=== PATIENT | female | born 1970 | race Two or more races ===

== ENCOUNTER 2016-06-30 20:07 | Emergency (ER) | payer OTHER ==
[~2016-06-30] VITALS: Ht 157.5 cm; Wt 84.8 kg
[~2016-06-30 20:07] MED LIST: CARAFATE1 G1 ORAL; COLACE100 MG ORAL; HYDROCODON-ACE1 EA15 ORAL; IBUPROFEN600 MG PO; NKM; NORCO 5-325 TA1 EACH ORAL; OMEPRAZOLE-BIC1 EAC1 PO; PRILOSEC OTC20 MG ORAL; SOMA350 MG ORAL; VICODIN 5-5001 EACH PO; ZOFRAN ODT4 MG ORAL
[2016-06-30 20:37] VITALS: BP 107/69
[2016-06-30] MEDS ORDERED: Ketorolac 30mg Inj IM ONE (21:00)
[2016-06-30] MEDS ORDERED: Norco 5mg/325mg tab PO ONE (21:00)
[2016-06-30] MEDS ORDERED: IBUPROFEN600 MG ORAL (22:16)
[2016-06-30] MEDS ORDERED: NORCO 5-325 TA1 EACH ORAL (22:16)
[2016-06-30 22:23] VITALS: BP_SYST 107; BP_SYST 110; BP_DIAS 69
--- NOTE | 2016-07-01 09:15 | Diagnostic Imaging Report ---
Indications: Low back pain. Technique: 3 views of the lumbar spine Findings: Comparison: 07/08/2010 Vertebral alignment remains intact. No fracture, lytic destruction, or other acute changes are demonstrated. Small osteophytes again noted at the margins of multiple disc spaces. Asymmetric narrowing of the L4-5 disc space again noted. IMPRESSION: No evidence of acute abnormality, unchanged Degenerative spondylosis, apparently most severe at L4-5, unchanged
--- NOTE | 2016-07-01 18:19 | Emergency Room Report ---
History of Present Illness General Chief Complaint: Back Pain-No Injury Source: Patient Present Illness HPI 45-year-old female presents ED complaining of back pain times one week. Denies trauma. Notes pain in the lower back, 8 out of 10, sharp, radiating down both legs. Denies any bowel or bladder incontinence. Denies any leg or motor weakness. No other aggravating relieving factors. Denies any other associated symptoms Allergies: Coded Allergies: No Known Allergies (Unverified , 05/31/12) Patient History Past Medical History: none Past Surgical History: none Pertinent Family History: none Social History: Denies: alcohol use, drug use, smoking Last Menstrual Period: May Now: No Immunizations: UTD Reviewed Nursing Documentation: PMH: Agreed, PSxH: Agreed Nursing Documentation-PMH Past Medical History: No Stated History Hx Hypertension: No Hx Diabetes: No Hx Gastrointestinal Problems: No Review of Systems All Other Systems: negative except mentioned in HPI Physical Exam Vital Signs Date Time Temp Pulse Resp B/P Pulse Ox O2 Delivery O2 Flow Rate FiO2 06/30/16 20:23 97.9 75 18 107/69 97 Room Air Sp02 EP Interpretation: reviewed, normal General Appearance: no apparent distress, alert, GCS 15, non-toxic Head: normocephalic Eyes: bilateral eye PERRL, bilateral eye normal inspection ENT: normal ENT inspection Neck: normal inspection Respiratory: normal inspection, speaking full sentences Cardiovascular #1: normal inspection Gastrointestinal: normal inspection Rectal: deferred Genitourinary: no CVA tenderness, no vertebral tenderness Musculoskeletal: other - paraspinal lumbar tenderness Neurologic: alert, oriented x3, responsive, motor strength/tone normal, sensory intact, speech normal Psychiatric: normal inspection Skin: normal inspection Lymphatic: normal inspection Medical Decision Making Diagnostic Impression: Primary Impression: Back pain Qualified Codes: M54.42 - Lumbago with sciatica, left side; M54.41 - Lumbago with sciatica, right side ER Course Hospital Course 45-year-old male presents ED complaining of lower back pain. No evidence of trauma Differential diagnoses include: pyelonephritis, kidney stone, muscle strain, Lspine fracture Clinical course Patient placed on stretcher. After initial history and physical I ordered toradol and [place] for pain. Upon reassessment patient states pain has improved. Patient is requesting x-rays of her back. I explained to the patient that given lack of trauma there is limited utility of x-ray, however patient insisted X-ray show no acute fractures or dislocation, some degenerative changes noted Diagnosis - back pain Stable and discharged to home with prescription for Motrin, [place] . Followup with PMD. Return to ED if symptoms recur or worsen Other X-Ray Diagnostic Results Other X-Ray Diagnostic Results : X-Ray Ordered: Amaya EP Interpretation: No Findings: no fractures, no dislocation, no soft tissue swelling, other - degenerative changes at L4-L5 Number of Views: 3 Last Vital Signs Date Time Temp Pulse Resp B/P Pulse Ox O2 Delivery O2 Flow Rate FiO2 06/30/16 22:23 97.9 71 18 110/69 97 Room Air Status: improved Disposition: HOME, SELF-CARE Condition: Stable Scripts Hydrocodone Bit/Acetaminophen 5-325* (NORCO 5-325*) 1 Each Tablet 1 TAB ORAL Q6H Y for For Pain, #10 TAB 0 Refills Prov: ANGELINA GREGG M.D. 06/30/16 Ibuprofen* (MOTRIN*) 600 Mg Tablet 600 MG ORAL Q8H Y for For Pain, #30 TAB 0 Refills Prov: ANGELINA GREGG M.D. 06/30/16 Patient Instructions: Sciatica ANGELINA GREGG M.D. July 01, 2016 18:19
== END 2016-06-30 22:23 | disposition home or self-care (01) ==
LOC: EMR 20:50
DX: M54.42 Lumbago with sciatica, left side (principal); M54.41 Lumbago with sciatica, right side; M51.36 Other intervertebral disc degeneration, lumbar region
CPT/HCPCS: 72020; 96372; 99284; J1885

== ENCOUNTER 2017-01-04 19:25 | Emergency (ER) | payer OTHER ==
[~2017-01-04] VITALS: Ht 154.9 cm; Wt 78.5 kg
[~2017-01-04 19:25] MED LIST changes: +IBUPROFEN600 MG ORAL
[2017-01-04] MEDS ORDERED: NKM (19:38)
--- NOTE | 2017-01-04 20:11 | Emergency Room Report ---
History of Present Illness General Chief Complaint: Abdominal Pain Source: Patient Present Illness HPI 46 YO Female presents to the ED c/o N/V/D x since last night. the patient Reports 10 out of 10 in severity cramping and increased flatulence. Denies recent abx use or recent travel, denies fevers or chills. Denies blood in the stool or vomit. denies dark tarry stools. denies dysuria, hematuria, polydipsia or frequency, Denies CP, Palpitations, LOC, AMS, dizziness, Changes in Vision, Sensation, paresthesias, or a sudden severe headache. Allergies: Coded Allergies: No Known Allergies (Unverified , 05/31/12) Patient History Past Medical History: see triage record Past Surgical History: none Pertinent Family History: none Last Menstrual Period: nov 2016 Now: No Reviewed Nursing Documentation: PMH: Agreed, PSxH: Agreed Nursing Documentation-PMH Past Medical History: No Stated History Hx Hypertension: No Hx Diabetes: No Hx Gastrointestinal Problems: No Review of Systems All Other Systems: negative except mentioned in HPI Physical Exam Vital Signs Date Time Temp Pulse Resp B/P (MAP) Pulse Ox O2 Delivery O2 Flow Rate FiO2 01/04/17 19:34 98.1 87 16 120/81 97 Room Air Sp02 EP Interpretation: reviewed, normal General Appearance: no apparent distress, alert, GCS 15, non-toxic Head: normocephalic, atraumatic Eyes: bilateral eye normal inspection, bilateral eye PERRL ENT: hearing grossly normal, normal voice Neck: full range of motion, supple/symm/no masses Respiratory: lungs clear, normal breath sounds, speaking full sentences Cardiovascular #1: regular rate, rhythm Gastrointestinal: normal bowel sounds - hyperactive bs in all 4 quadrants, soft , non-distended, no guarding, no pulsatile mass, no rebound, tenderness - generalized TTP to deep palpation primarily in the LLQ Rectal: deferred Genitourinary: normal inspection, no CVA tenderness Musculoskeletal: back normal, gait/station normal, normal range of motion Neurologic: alert, oriented x3, responsive, motor strength/tone normal, sensory intact, speech normal Skin: normal color, no rash, warm/dry, well hydrated Medical Decision Making PA Attestation Dr. joy is my supervising Physician whom patient management has been discussed with. Diagnostic Impression: Primary Impression: Abdominal pain Qualified Codes: R10.84 - Generalized abdominal pain Additional Impression: Diarrhea Qualified Codes: R19.7 - Diarrhea, unspecified ER Course 46 YO Female presents to the ED c/o N/V/D x since last night. the patient Reports 10 out of 10 in severity cramping and increased flatulence. Denies recent abx use or recent travel, denies fevers or chills. Denies blood in the stool or vomit. denies dark tarry stools. denies dysuria, hematuria, polydipsia or frequency, Denies CP, Palpitations, LOC, AMS, dizziness, Changes in Vision, Sensation, paresthesias, or a sudden severe headache. Ddx considered but are not limited to GE, colitis, acute appendicitis, SBO, diverticulitis, acute abdomen just to name a few. Vital signs: pt. is afebrile, H&PE are most consistent with gastroenteritis, no PE signs to suspect acute abdomen at this time. ORDERS: - UA : unremarkable -Urine hcg : negative ED INTERVENTIONS: - Gi Cocktail -Zofran 4mg -Zantac PO - Toradol IV - Re-assessment pt is noted to be sleeping comfortably. -D/w pt. conservative treatment, and to follow up with a primary care provider. pt given a list of primary care clinics for follow up. D/w pt. to return promptly to the ED with worsening or new symptoms. -D/w pt. to stay hydrated, and bland diet. DISCHARGE: At this time pt. is stable for d/c to home. Will provide printed patient care instructions, and any necessary prescriptions. Care plan and follow up instructions have been discussed with the patient prior to discharge. Labs Test 01/04/17 20:37 01/04/17 21:27 Urine HCG, Qualitative Negative Urine Color Pale yellow Urine Appearance Clear Urine pH 6 (4.5-8.0) Urine Specific [place] 1.005 (1.005-1.035) Urine Protein Negative (NEGATIVE) Urine Glucose (UA) Negative (NEGATIVE) Urine Ketones Negative (NEGATIVE) Urine Occult Blood 2+ (NEGATIVE) Urine Nitrite Negative (NEGATIVE) Urine Bilirubin Negative (NEGATIVE) Urine Urobilinogen Normal MG/DL (0.0-1.0) Urine Leukocyte Esterase Negative (NEGATIVE) Urine RBC 2-4 /HPF (0 - 2) Urine WBC 0-2 /HPF (0 - 2) Urine Squamous Epithelial Cells Few /LPF (NONE/OCC) Urine Bacteria Few /HPF (NONE) Labs Test 01/04/17 20:37 Urine HCG, Qualitative Negative Last Vital Signs Date Time Temp Pulse Resp B/P (MAP) Pulse Ox O2 Delivery O2 Flow Rate FiO2 01/04/17 19:34 98.1 87 16 120/81 97 Room Air Disposition: HOME, SELF-CARE Condition: Stable Scripts Ranitidine Hcl* (ZANTAC*) 150 Mg Tablet 150 MG ORAL TWICE A DAY for 7 Days, #14 TAB Prov: Maura Fox 01/04/17 Ondansetron Odt* (ZOFRAN ODT*) 4 Mg Tab.rapdis 4 MG ORAL Q6H Y for Nausea & Vomiting, #20 TAB Prov: Maura Fox 01/04/17 Dicyclomine Hcl* (BENTYL*) 10 Mg Capsule 10 MG ORAL FOUR TIMES A DAY for 12 Days, CAP Prov: Maura Fox 01/04/17 Patient Instructions: Diarrhea, Adult, [id number], Viral Gastroenteritis, Adult Additional Instructions: Take medications as directed. Follow up with a Primary Care Provider in 3-5 days, even if your symptoms have resolved. --Please review list of primary care clinics, if you do not already have a primary care provider Return sooner to ED if new symptoms occur, or current symptoms become worse. - Please note that this Emergency Department Report was dictated using [employer] mobile technology software, occasionally this can lead to erroneous entry secondary to interpretation by the dictation equipment. Maura Fox Jan 04, 2017 20:10
[2017-01-04] MEDS ORDERED: Mylanta II UD 30ml ORAL ONE (20:15)
[2017-01-04] MEDS ORDERED: Lidocaine 2% Visc 15ml soln ORAL ONE (20:15)
[2017-01-04] MEDS ORDERED: Dicyclomine HCl 10mg/5ml oral soln ORAL ONE (20:15)
[2017-01-04] MEDS ORDERED: Ketorolac 60mg Inj IM ONE (20:45)
[2017-01-04] MEDS ORDERED: Ketorolac 30mg Inj IV ONE (21:00)
[2017-01-04] MEDS ORDERED: ZANTAC150 MG ORAL (21:32)
[2017-01-04] MEDS ORDERED: BENTYL10 MG ORAL (21:32)
[2017-01-04] MEDS ORDERED: ZOFRAN ODT4 MG ORAL (21:32)
[2017-01-04 22:10] VITALS: BP 136/76
[2017-01-04 23:21] LABS: APPEARANCE,URINE CLEAR; KETONES,URINE NEGATIVE (NEGATIVE); LEUKOCYTE ESTERASE ,URINE NEGATIVE (NEGATIVE); NITRITE,URINE NEGATIVE (NEGATIVE); PH,URINE 6 (4.5-8.0); PROTEIN,URINE NEGATIVE (NEGATIVE); UROBILINOGEN,URINE NORMAL MG/DL (0.0-1.0)
[2017-01-04 23:28] LABS: BACTERIA,URINE FEW /HPF; SQUAMOUS EPITHELIAL CELL,UR FEW /LPF (NONE/OCC); WBC,URINE 0-2 /HPF (0 - 2)
== END 2017-01-04 22:10 | disposition home or self-care (01) ==
LOC: EMR 20:52
DX: R10.9 Unspecified abdominal pain (principal); R19.7 Diarrhea, unspecified
CPT/HCPCS: 81003; 81025; 96372; 96374; 99284; J1885

== ENCOUNTER 2017-06-20 12:49 | Emergency (ER) | payer OTHER ==
[~2017-06-20] VITALS: Ht 162.6 cm; Wt 78.5 kg
[~2017-06-20 12:49] MED LIST changes: +BENTYL10 MG ORAL; +ZANTAC150 MG ORAL
[2017-06-20 13:55] VITALS: BP 104/60
[2017-06-20] MEDS ORDERED: Metoclopramide 10mg/2ml Inj IVP ONE (14:15)
[2017-06-20 14:39] LABS: BASOPHILS % (AUTO) 0.8 % (0.0-2.0); EOSINOPHILS % (AUTO) 0.6 % (0.0-3.0); HEMATOCRIT 43.9 % (37.0-47.0); HEMOGLOBIN 14.9 G/DL (12.0-16.0); LYMPHOCYTES % (AUTO) 17.4 % (20.0-45.0); MEAN CORPUSCULAR VOLUME 85 FL (80-99); MONOCYTES % (AUTO) 4.8 % (1.0-10.0); NEUTROPHILS % (AUTO) 76.4 % (45.0-75.0); PLATELET COUNT 304 K/UL (150-450); RED BLOOD COUNT 5.16 M/UL (4.20-5.40); RED CELL DISTRIBUTION WIDTH 12.1 % (11.6-14.8); WHITE BLOOD COUNT 8.8 K/UL (4.8-10.8)
[2017-06-20 14:43] LABS: APPEARANCE,URINE CLOUDY; BILIRUBIN, URINE NEGATIVE (NEGATIVE); GLUCOSE, URINE (UA) NEGATIVE (NEGATIVE); KETONES,URINE 2+ (NEGATIVE); LEUKOCYTE ESTERASE ,URINE 2+ (NEGATIVE); NITRITE,URINE NEGATIVE (NEGATIVE); PH,URINE 9 (4.5-8.0); PROTEIN,URINE 1+ (NEGATIVE); UROBILINOGEN,URINE NORMAL MG/DL (0.0-1.0)
[2017-06-20] MEDS ORDERED: Morphine Sulfate 4mg/ml Inj IVP ONE (14:45)
[2017-06-20 14:46] LABS: ANION GAP 9 mmol/L (5-15); BLOOD UREA NITROGEN 14 mg/dL (7-18); CALCIUM 9.4 MG/DL (8.5-10.1); CARBON DIOXIDE 27 MMOL/L (21-32); CHLORIDE 104 MMOL/L (98-107); CREATININE 0.7 MG/DL (0.55-1.30); POTASSIUM 3.8 MMOL/L (3.5-5.1); SODIUM 140 MMOL/L (136-145)
[2017-06-20 14:47] LABS: COLOR,URINE YELLOW
--- NOTE | 2017-06-20 14:53 | Diagnostic Imaging Report ---
Indication: Headache Technique: Contiguous 5 mm thick transaxial imaging of the head obtained in a Siemens Sensation [address] scanner. Soft tissue and bone windows generated. Automatic Exposure Control was utilized. Total Dose length Product (DLP): 1379.[address] Dose Index Volume (CTDIvol): 70.38 mGy Comparison: none Findings: The size and configuration of the cortical sulci, basal cisterns, and ventricles are within normal limits for age. There is no mass effect, midline shift, or edema identified. There is no evidence of acute hemorrhage or abnormal intra-axial or extra-axial fluid collections. The bones and soft tissues are unremarkable. Impression: No mass effect, edema or acute bleed. The CT scanner at [facility] is accredited by the [employer] and the scans are performed using dose optimization techniques as appropriate to a performed exam including Automatic Exposure control.
[2017-06-20 14:59] LABS: ALANINE AMINOTRANSFERASE 40 U/L (12-78); ALBUMIN 3.8 G/DL (3.4-5.0); ALBUMIN/GLOBULIN RATIO 0.9 (1.0-2.7); ALKALINE PHOSPHATASE 73 U/L (46-116); ASPARTATE AMINO TRANSFERASE 24 U/L (15-37); BILIRUBIN,TOTAL 1.1 MG/DL (0.2-1.0)
[2017-06-20 15:02] LABS: BILIRUBIN,DIRECT 0.2 MG/DL (0.0-0.3)
[2017-06-20] MEDS ORDERED: cefTRIAXone 1 GM in NS 55 ML IV ONE (15:15)
[2017-06-20] MEDS ORDERED: CEPHALEXIN500 MG ORAL (15:29)
--- NOTE | 2017-06-20 15:30 | Emergency Room Report ---
History of Present Illness General Chief Complaint: Abdominal Pain Source: Patient Present Illness HPI 46 y/o female presents to the ER for abdominal pain and headache since this morning. Patient states that she has a generalized headache associated with nausea and generalized abdominal pain. Patient states that he is not taking medications for symptoms and has no other physical complaints. Patient denies any significant medical history and denies taking medication for her symptoms. Patient denies any modifying factors and states that food does not make her symptoms worse. Patient denies any fever, chills, chest pain, shortness of breath, neck stiffness, rashes, body aches, chills, vision changes, muscle weakness, blurred vision, neck pain. Allergies: Coded Allergies: No Known Allergies (Unverified , 05/31/12) Patient History Limited by: language barrier Past Medical History: see triage record Past Surgical History: none Pertinent Family History: none Last Menstrual Period: 4-26 Now: No Reviewed Nursing Documentation: PMH: Agreed; PSxH: Agreed Nursing Documentation-PMH Past Medical History: No History, Except For Hx Hypertension: No Hx Diabetes: No Hx Gastrointestinal Problems: Yes - gastritis Review of Systems All Other Systems: negative except mentioned in HPI Physical Exam Vital Signs Date Time Temp Pulse Resp B/P (MAP) Pulse Ox O2 Delivery O2 Flow Rate FiO2 18 13:19 98.1 67 18 120/79 98 Room Air 98.1 Sp02 EP Interpretation: reviewed, normal General Appearance: no apparent distress, alert, GCS 15, non-toxic Head: normocephalic, atraumatic Eyes: bilateral eye normal inspection, bilateral eye PERRL ENT: hearing grossly normal, normal pharynx, no angioedema, normal voice Neck: full range of motion, supple/symm/no masses Respiratory: chest non-tender, lungs clear, normal breath sounds, speaking full sentences Cardiovascular #1: regular rate, rhythm, no edema Gastrointestinal: normal bowel sounds, non tender, soft, non-distended, no guarding, no rebound Genitourinary: no CVA tenderness Musculoskeletal: back normal, gait/station normal, normal range of motion, non- tender, calf tenderness Neurologic: alert, oriented x3, responsive, motor strength/tone normal, sensory intact, speech normal Psychiatric: judgement/insight normal, memory normal, mood/affect normal, no suicidal/homicidal ideation Skin: normal color, no rash, warm/dry, well hydrated Medical Decision Making PA Attestation Dr. Bonilla my supervising physician with whom patient management has been discussed with. Diagnostic Impression: Primary Impression: UTI (urinary tract infection) ER Course Pt. presents to the ED c/o abd pain and headache Ddx considered but are not limited to CVA, migraine, meningitis, ICH, gastritis , UTI, Pyelonephritis Vital signs: are WNL, pt. is afebrile H&PE are most consistent with UTI ORDERS / ED INTERVENTIONS: My Orders - MAGEN RUIAS Procedure Category Date Status Time Iv Access / Saline CARE 06/20/17 Transmitted Lock 14:05 Cbc W/ Differential LAB 06/20/17 Complete 14:05 CMP LAB 06/20/17 Complete 14:05 Urine Screen LAB 06/20/17 Complete 14:05 Urinalysis Reflex LAB 06/20/17 Complete Microscopy 14:05 Ct Head No Contrast CT 06/20/17 Resulted 14:05 Ns 1000ml (Sodium PHA 06/20/17 Complete Chloride 1000ml Bag) 14:05 Saline 10ml Flush PHA 06/20/17 In Process (Saline 10ml Flush) 14:15 Metoclopramide PHA 06/20/17 Complete (Reglan) 14:15 Morphine Sulfate PHA 06/20/17 Complete (Morphine Sulfate) 14:45 Bilirubin Direct LAB 06/20/17 Complete 14:21 Culture Urine JUAN 06/20/17 In Process 13:25 Ceftriaxone (Rocephin) PHA 06/20/17 Complete 15:15 DISCHARGE: At this time pt. is stable for d/c to home. Will provide printed patient care instructions, and any necessary prescriptions. Care plan and follow up instructions have been discussed with the patient prior to discharge. Laboratory Tests Test 06/20/17 13:25 06/20/17 14:21 Urine Color Yellow Urine Appearance Cloudy Urine pH 9 (4.5-8.0) Urine Specific [place] 1.015 (1.005-1.035) Urine Protein 1+ (NEGATIVE) H Urine Glucose (UA) Negative (NEGATIVE) Urine Ketones 2+ (NEGATIVE) H Urine Occult Blood Negative (NEGATIVE) Urine Nitrite Negative (NEGATIVE) Urine Bilirubin Negative (NEGATIVE) Urine Urobilinogen Normal MG/DL (0.0-1.0) Urine Leukocyte Esterase 2+ (NEGATIVE) H Urine RBC 0-2 /HPF (0 - 2) Urine WBC 5-10 /HPF (0 - 2) H Urine Squamous Epithelial Cells Occasional /LPF Urine Amorphous Sediment Many /LPF (NONE) H Urine Bacteria Moderate /HPF (NONE) H Urine HCG, Qualitative Negative (NEGATIVE) White Blood Count 8.8 K/UL (4.8-10.8) Red Blood Count 5.16 M/UL (4.20-5.40) Hemoglobin 14.9 G/DL (12.0-16.0) Hematocrit 43.9 % (37.0-47.0) Mean Corpuscular Volume 85 FL (80-99) Mean Corpuscular Hemoglobin 28.8 PG (27.0-31.0) Mean Corpuscular Hemoglobin Concent 33.9 G/DL (32.0-36.0) Red Cell Distribution Width 12.1 % (11.6-14.8) Platelet Count 304 K/UL (150-450) Mean Platelet Volume 6.9 FL (6.5-10.1) Neutrophils (%) (Auto) 76.4 % (45.0-75.0) H Lymphocytes (%) (Auto) 17.4 % (20.0-45.0) L Monocytes (%) (Auto) 4.8 % (1.0-10.0) Eosinophils (%) (Auto) 0.6 % (0.0-3.0) Basophils (%) (Auto) 0.8 % (0.0-2.0) Sodium Level 140 MMOL/L (136-145) Potassium Level 3.8 MMOL/L (3.5-5.1) Chloride Level 104 MMOL/L (98-107) Carbon Dioxide Level 27 MMOL/L (21-32) Anion Gap 9 mmol/L (5-15) Blood Urea Nitrogen 14 mg/dL (7-18) Creatinine 0.7 MG/DL (0.55-1.30) Estimate Glomerular Filtration Rate > 60 mL/min (>60) Glucose Level 114 MG/DL (74-106) H Calcium Level 9.4 MG/DL (8.5-10.1) Total Bilirubin 1.1 MG/DL (0.2-1.0) H Direct Bilirubin 0.2 MG/DL (0.0-0.3) Aspartate Amino Transferase (AST) 24 U/L (15-37) Alanine Aminotransferase (ALT) 40 U/L (12-78) Alkaline Phosphatase 73 U/L (46-116) Total Protein 8.0 G/DL (6.4-8.2) Albumin 3.8 G/DL (3.4-5.0) Globulin 4.2 g/dL Albumin/Globulin Ratio 0.9 (1.0-2.7) L Last Vital Signs Date Time Temp Pulse Resp B/P (MAP) Pulse Ox O2 Delivery O2 Flow Rate FiO2 06/20/17 15:49 98.0 06/20/17 13:55 68 12 104/60 95 Room Air Disposition: HOME, SELF-CARE Condition: Stable Scripts Cephalexin* (KEFLEX*) 500 Mg Capsule 500 MG ORAL EVERY 12 HOURS, #14 CAP 0 Refills Prov: MAGEN URIAS 06/20/17 Referrals: NON PHYSICIAN (PCP) Patient Instructions: Urinary Tract Infection Additional Instructions: Take medication as directed. Return to clinic or PCP sooner if symptoms worsen or do not improve. Go to ER if you experience any adverse reactions to medication or if you start developing back pain or fever. patient's return for recheck of her abdominal pain if she experiences any worsening or persisting abdominal pain within the next 8-10 hours should her symptoms persist or worsen. MAGEN URIAS June 20, 2017 15:30
[2017-06-20 16:10] VITALS: BP 108/72
== END 2017-06-20 16:13 | disposition home or self-care (01) ==
LOC: EMR 13:51
DX: N39.0 Urinary tract infection, site not specified (principal); Z87.19 Personal history of other diseases of the digestive system
CPT/HCPCS: 36415; 70450; 80053; 81003; 81025; 82248; 85025; 87086; 96374; 96375; 99284; J0696; J2270; J2765

== ENCOUNTER 2018-05-22 17:13 | Emergency (ER) | payer OTHER ==
[~2018-05-22] VITALS: Ht 165.1 cm; Wt 81.6 kg
[~2018-05-22 17:13] MED LIST changes: +CEPHALEXIN500 MG ORAL
--- NOTE | 2018-05-22 17:43 | Emergency Room Report ---
History of Present Illness General Chief Complaint: Abdominal Pain Source: Patient, Medical Record Present Illness HPI Patient is a 47-year-old female presented after increased epigastric discomfort and diarrhea. Patient had been having multiple episodes of diarrhea since . She reports having sick contacts at home with similar symptoms. Patient had been seen by her primary care physician was told that she had a virus and was given prescription for metronidazole and Flagyl. Patient had not been vomiting. She reports having some prior history of H. pylori. She denies any black or bloody stools. She states that she been taking Pepto-Bismol as well as Imodium without any improvement. Allergies: Coded Allergies: No Known Allergies (Unverified , 05/31/12) Patient History Past Medical History: see triage record Last Menstrual Period: 05/06/18 Reviewed Nursing Documentation: PMH: Agreed; PSxH: Agreed Nursing Documentation-PMH Past Medical History: No History, Except For Hx Hypertension: No Hx Diabetes: No Hx Gastrointestinal Problems: Yes - gastritis Review of Systems All Other Systems: negative except mentioned in HPI Physical Exam Vital Signs Date Time Temp Pulse Resp B/P (MAP) Pulse Ox O2 Delivery O2 Flow Rate FiO2 05/22/18 17:23 98.1 71 18 120/78 96 Room Air Sp02 EP Interpretation: reviewed, normal General Appearance: normal inspection, well appearing, no apparent distress, alert, GCS 15, non-toxic Head: atraumatic ENT: normal ENT inspection, hearing grossly normal, normal voice Neck: normal inspection, full range of motion, supple, no bony tend Respiratory: normal inspection, lungs clear, normal breath sounds, no respiratory distress, no retraction, no wheezing Cardiovascular #1: regular rate, rhythm, no edema Gastrointestinal: normal inspection, normal bowel sounds, non tender, soft, no guarding, no hernia Genitourinary: no CVA tenderness Musculoskeletal: normal inspection, back normal, normal range of motion Neurologic: normal inspection, alert, oriented x3, responsive, verse writer III-XII nml as tested, speech normal Psychiatric: normal inspection, judgement/insight normal, mood/affect normal Skin: normal inspection, normal color, no rash Medical Decision Making Diagnostic Impression: Primary Impression: Abdominal pain Additional Impression: Gastroenteritis ER Course Patient presented for abdominal pain. Differential diagnoses included ischemic bowel, appendicitis, perforated viscus, abdominal aortic aneurysm, inferior myocardial infarction, viral gastroenteritis among others. Patient has a benign exam and does not appear to require any further imaging or laboratory testing at this time. Patient appears to have a viral gastroenteritis.Patient is given medications for symptomatic treatment. She is advised to follow-up with her primary care physician for recheck. The patient is advised to follow up with primary care doctor in 1-2 days. Patient is advised to return if any worsening condition or if any changes in status that are concerning. This report is dictated with [employer] silverlight developer software which may occasionally lead to discrepancies related to use of this software. Labs Test 05/22/18 17:57 Urine HCG, Qualitative Negative (NEGATIVE) Last Vital Signs Date Time Temp Pulse Resp B/P (MAP) Pulse Ox O2 Delivery O2 Flow Rate FiO2 05/22/18 17:23 98.1 71 18 120/78 96 Room Air Status: improved Disposition: HOME, SELF-CARE Condition: Stable Scripts Diphenoxylate Hcl/Atropine (LOMOTIL TABLET) 1 Each Tablet 1 TAB ORAL DAILY, #10 TAB 0 Refills Prov: Jose Zepeda MD 05/22/18 Famotidine (PEPCID AC) 20 Mg Tablet 20 MG PO DAILY, #30 TAB Prov: Jose Zepeda MD 05/22/18 Dicyclomine Hcl* (DICYCLOMINE HCL*) 10 Mg Capsule 10 MG PO QID, #60 CAP Prov: Jose Zepeda MD 05/22/18 Jose Zepeda MD May 22, 2018 17:43
[2018-05-22] MEDS ORDERED: Simethicone 80mg tab ORAL ONE (17:45)
[2018-05-22] MEDS ORDERED: Lidocaine 2% Visc 15ml soln ORAL ONE (17:45)
[2018-05-22] MEDS ORDERED: Dicyclomine HCl 10mg/5ml oral soln ORAL ONE (17:45)
[2018-05-22 18:19] VITALS: BP 116/72
[2018-05-22] MEDS ORDERED: DICYCLOMINE HCL10 MG PO (18:41)
[2018-05-22] MEDS ORDERED: PEPCID AC20 M2 PO (18:41)
[2018-05-22] MEDS ORDERED: LOMOTIL TABLET1 EACH ORAL (18:41)
[2018-05-22 19:03] VITALS: BP 116/72
== END 2018-05-22 19:03 | disposition home or self-care (01) ==
LOC: EMR 17:45
DX: K52.9 Noninfective gastroenteritis and colitis, unspecified (principal); R10.13 Epigastric pain
CPT/HCPCS: 81025; 99283

== ENCOUNTER 2018-06-15 04:59 | Emergency (ER) | payer OTHER ==
[~2018-06-15] VITALS: Ht 172.7 cm; Wt 81.6 kg
[~2018-06-15 04:59] MED LIST changes: +DICYCLOMINE HCL10 MG PO; +LOMOTIL TABLET1 EACH ORAL; +PEPCID AC20 M2 PO
[2018-06-15 05:10] VITALS: BP 127/82
--- NOTE | 2018-06-15 05:10 | NUR ---
ED Nurse Note: Pt has L lower back pain tranfer to front and flank for 3 days.
--- NOTE | 2018-06-15 05:22 | Emergency Room Report ---
History of Present Illness General Chief Complaint: Pain Source: Patient (Lewis Barrett MD) Present Illness HPI Is a 47-year-old female with no past medical issue. She presents with chief complaint of back pain. Onset for 3 days. Ankle is localized the left flank going to the groin. Pain is sharp. 9 out of 10. Worse with movement. No trauma. No fever chills but no incontinence of bowel or urine. Never had this problem before. No urinary complaint. (Lewis Barrett MD) Allergies: Coded Allergies: No Known Allergies (Unverified , 05/31/12) Patient History Past Medical History: see triage record, old chart reviewed Past Surgical History: none Pertinent Family History: none Last Menstrual Period: Jun 06 2018 Now: No Immunizations: other Reviewed Nursing Documentation: PMH: Agreed; PSxH: Agreed (Lewis Barrett MD) Nursing Documentation-PMH Hx Hypertension: No Hx Diabetes: No Hx Gastrointestinal Problems: Yes - gastritis (Lewis Barrett MD) Review of Systems Eye: Denies: eye pain, blurred vision ENT: Denies: ear pain, nose congestion, throat swelling Respiratory: Denies: cough, shortness of breath Cardiovascular: Denies: chest pain, palpitations Gastrointestinal: Denies: abdominal pain, diarrhea, nausea, vomiting Musculoskeletal: Reports: back pain; Denies: joint pain Skin: Denies: rash Neurological: Denies: headache, numbness Endocrine: Denies: increased thirst, increased urine Hematologic/Lymphatic: Denies: easy bruising All Other Systems: negative except mentioned in HPI (Lewis Barrett MD) Physical Exam Vital Signs Date Time Temp Pulse Resp B/P (MAP) Pulse Ox O2 Delivery O2 Flow Rate FiO2 06/15/18 05:04 98.2 89 20 127/82 97 Room Air vitals normal Sp02 EP Interpretation: reviewed, normal General Appearance: well appearing, no apparent distress, alert Head: normocephalic, atraumatic Eyes: bilateral eye PERRL, bilateral eye EOMI ENT: hearing grossly normal, normal pharynx Neck: full range of motion, supple, no meningismus Respiratory: chest non-tender, lungs clear, normal breath sounds Cardiovascular #1: regular rate, rhythm, no murmur Gastrointestinal: normal bowel sounds, non tender, no mass, no organomegaly, no bruit, non-distended Musculoskeletal: back normal, gait/station normal, normal range of motion Psychiatric: mood/affect normal Skin: warm/dry (Lewis Barrett MD) Medical Decision Making Diagnostic Impression: Primary Impression: Back pain Qualified Codes: M54.5 - Low back pain ER Course She presents with back pain. No evidence of sinus syndrome, spinal after abscess or neoplastic process. Labs unremarkable. Urine negative for infection. CT scan pending. (Lewis Barrett MD) ER Course CT scan read by radiology showed multiple lymph nodes without any evidence of kidney stone, appendicitis. Patient had a fat-containing umbilical hernia. There is normal bowel gas pattern. Patient was given a GI cocktail.Patient was advised her to follow-up with primary care physician for recheck and further evaluation of lymphadenopathy. (Jose Zepeda MD) Last Vital Signs Date Time Temp Pulse Resp B/P (MAP) Pulse Ox O2 Delivery O2 Flow Rate FiO2 06/15/18 05:10 98.2 89 20 127/82 97 Room Air Status: improved (Lewis Barrett MD) Status: improved (Jose Zepeda MD) Disposition: HOME, SELF-CARE Condition: Stable Scripts Pantoprazole* (PROTONIX*) 40 Mg Tablet.dr 40 MG ORAL DAILY, #30 TAB Prov: Jose Zepeda MD 06/15/18 Metronidazole* (FLAGYL*) 500 Mg Tablet 500 MG ORAL BID, #14 TAB Prov: Jose Zepeda MD 06/15/18 Dicyclomine Hcl* (DICYCLOMINE HCL*) 10 Mg Capsule 10 MG PO QID, #30 CAP Prov: Jose Zepeda MD 06/15/18 Referrals: [facility]ERR[facility] (PCP) Lewis Barrett MD June 15, 2018 05:22 Jose Zepeda MD June 15, 2018 07:06
[2018-06-15] MEDS ORDERED: Morphine Sulfate 4mg/ml Inj (IV USE ONLY) IVP ONE ×2 (05:30→05:45)
[2018-06-15] MEDS ORDERED: Ketorolac 30mg Inj IV ONE (05:30)
[2018-06-15 05:31] LABS: APPEARANCE,URINE CLEAR; BILIRUBIN, URINE NEGATIVE (NEGATIVE); COLOR,URINE PALE YELLOW; GLUCOSE, URINE (UA) NEGATIVE (NEGATIVE); KETONES,URINE NEGATIVE (NEGATIVE); LEUKOCYTE ESTERASE ,URINE 1+ (NEGATIVE); NITRITE,URINE NEGATIVE (NEGATIVE); PH,URINE 6.5 (4.5-8.0); PROTEIN,URINE NEGATIVE (NEGATIVE); UROBILINOGEN,URINE NORMAL MG/DL (0.0-1.0)
[2018-06-15] MEDS ORDERED: Morphine Sulfate 4mg/ml Inj (IV USE ONLY) ONE (05:33)
--- NOTE | 2018-06-15 05:34 | NUR ---
ED Nurse Note: verbal order of 4mg morphine per ermd
[2018-06-15 05:35] LABS: BASOPHILS % (AUTO) 1.2 % (0.0-2.0); EOSINOPHILS % (AUTO) 2.3 % (0.0-3.0); HEMATOCRIT 43.3 % (37.0-47.0); HEMOGLOBIN 14.6 G/DL (12.0-16.0); LYMPHOCYTES % (AUTO) 27.8 % (20.0-45.0); MEAN CORPUSCULAR VOLUME 84 FL (80-99); MONOCYTES % (AUTO) 7.5 % (1.0-10.0); NEUTROPHILS % (AUTO) 61.2 % (45.0-75.0); PLATELET COUNT 338 K/UL (150-450); RED BLOOD COUNT 5.15 M/UL (4.20-5.40); RED CELL DISTRIBUTION WIDTH 12.8 % (11.6-14.8); WHITE BLOOD COUNT 9.2 K/UL (4.8-10.8)
--- NOTE | 2018-06-15 05:37 | NUR ---
ED Nurse Note: pt left for CT
[2018-06-15 05:43] LABS: ANION GAP 9 mmol/L (5-15); BLOOD UREA NITROGEN 14 mg/dL (7-18); CALCIUM 9.7 MG/DL (8.5-10.1); CARBON DIOXIDE 25 MMOL/L (21-32); CHLORIDE 103 MMOL/L (98-107); CREATININE 0.8 MG/DL (0.55-1.30); POTASSIUM 3.9 MMOL/L (3.5-5.1); SODIUM 137 MMOL/L (136-145)
[2018-06-15 05:47] LABS: ALANINE AMINOTRANSFERASE 37 U/L (12-78); ALBUMIN 3.8 G/DL (3.4-5.0); ALBUMIN/GLOBULIN RATIO 0.8 (1.0-2.7); ALKALINE PHOSPHATASE 81 U/L (46-116); ASPARTATE AMINO TRANSFERASE 25 U/L (15-37); BILIRUBIN,TOTAL 0.7 MG/DL (0.2-1.0)
--- NOTE | 2018-06-15 05:53 | NUR ---
ED Nurse Note: pt returned from CT
[2018-06-15 06:52] VITALS: BP 109/64
[2018-06-15] MEDS ORDERED: Dicyclomine HCl 10mg/5ml oral soln ORAL ONE (07:15)
[2018-06-15] MEDS ORDERED: Lidocaine 2% Visc 15ml soln ORAL ONE (07:15)
--- NOTE | 2018-06-15 07:24 | NUR ---
HAND-OFF: Report given to WARREN Tubbs.
--- NOTE | 2018-06-15 07:28 | NUR ---
ED Nurse Note: Received patient in bed, patient is resting comfortably in bed, asleep, eyes closed, breathing even and unlabored. patient's vital signs stable. Patient's daughter is at bedside.
[2018-06-15 07:36] VITALS: BP 106/69
[2018-06-15] MEDS ORDERED: METRONIDAZOLE500 MG ORAL (08:41)
[2018-06-15] MEDS ORDERED: PROTONIX40 MG ORAL (08:41)
[2018-06-15] MEDS ORDERED: DICYCLOMINE HCL10 MG PO (08:41)
[2018-06-15 08:56] VITALS: BP 112/72
--- NOTE | 2018-06-15 08:58 | Diagnostic Imaging Report ---
Indication: Abdominal pain Technique: Continuous helical transaxial imaging of the abdomen and pelvis was obtained from the lung bases to the pubic symphysis. No intravenous contrast was administered. Coronal 2-D reformats were also obtained. Automatic Exposure Control was utilized. Total Dose length Product (DLP): 901.[address] Dose Index Volume (CTDIvol): 16.38 mGy Comparison: Noncontrast CT abdomen pelvis 12/01/2014 Findings: Lung bases are clear. The appendix is normal. There is a 3 cm hypodensity in the left lobe of the liver nonspecific on this study. Similar appearance on the last exam without change. Gallbladder is unremarkable. No nephrolithiasis or hydronephrosis demonstrated. Small hypodensity in the right kidney measuring 1 cm nonspecific. No free fluid identified. No evidence of bowel obstruction. Bladder is nondistended. Uterus noted. IMPRESSION: No acute findings appreciated. 3 cm hypodensity in the left lobe of the liver nonspecific, incompletely evaluated but without change from prior study. 1 cm hypodensity in the right kidney, nonspecific without change. The CT scanner at [facility] is accredited by the [employer] and the scans are performed using dose optimization techniques as appropriate to a performed exam including Automatic Exposure control.
[2018-06-15 08:59] VITALS: BP 112/72
--- NOTE | 2018-06-15 09:00 | NUR ---
ER DISCHARGE NOTE: Patient is cleared to be discharged per ERMD Dr. FLORES , pt is aox4, on room air, with stable vital signs. pt was given dc and prescription instructions, pt was able to verbalize understanding, pt id band and iv site removed without complications. pt is able to ambulate with steady gait. patient's daughter at bedside. pt took all belongings.
== END 2018-06-15 09:00 | disposition home or self-care (01) ==
LOC: EMR 05:13
DX: M54.5 Low back pain (principal); R10.9 Unspecified abdominal pain
CPT/HCPCS: 36415; 74176; 80053; 81003; 81025; 83690; 85025; 96361; 96374; 96375; 99284; J1885; J2270; J2405; S0028

== ENCOUNTER 2019-01-09 17:20 | Emergency (ER) | payer BC, OTHER ==
[~2019-01-09] VITALS: Ht 160 cm; Wt 78.5 kg
[~2019-01-09 17:20] MED LIST changes: +METRONIDAZOLE500 MG ORAL; +PROTONIX40 MG ORAL
[2019-01-09 17:30] VITALS: BP 122/86
--- NOTE | 2019-01-09 17:30 | NUR ---
ED Nurse Note: Pt walked into ED from home c/o mid abdominal pain starting at 0400 today. Pt states pain /. denies N&V. No acute distress.
[2019-01-09] MEDS ORDERED: Ketorolac 30mg Inj IV ONE (17:45)
[2019-01-09 18:32] LABS: ANION GAP 8 mmol/L (5-15); BLOOD UREA NITROGEN 17 mg/dL (7-18); CALCIUM 8.7 MG/DL (8.5-10.1); CARBON DIOXIDE 28 MMOL/L (21-32); CHLORIDE 103 MMOL/L (98-107); CREATININE 0.8 MG/DL (0.55-1.30); POTASSIUM 3.6 MMOL/L (3.5-5.1); SODIUM 139 MMOL/L (136-145)
[2019-01-09 18:39] LABS: APPEARANCE,URINE CLEAR; BILIRUBIN, URINE NEGATIVE (NEGATIVE); COLOR,URINE PALE YELLOW; GLUCOSE, URINE (UA) NEGATIVE (NEGATIVE); KETONES,URINE NEGATIVE (NEGATIVE); LEUKOCYTE ESTERASE ,URINE NEGATIVE (NEGATIVE); NITRITE,URINE NEGATIVE (NEGATIVE); PH,URINE 6 (4.5-8.0); PROTEIN,URINE NEGATIVE (NEGATIVE); UROBILINOGEN,URINE NORMAL MG/DL (0.0-1.0)
[2019-01-09 18:47] LABS: ALANINE AMINOTRANSFERASE 30 U/L (12-78); ALKALINE PHOSPHATASE 68 U/L (46-116); ASPARTATE AMINO TRANSFERASE 20 U/L (15-37); BILIRUBIN,TOTAL 1.5 MG/DL (0.2-1.0)
[2019-01-09 18:50] LABS: BASOPHILS % (AUTO) 0.5 % (0.0-2.0); EOSINOPHILS % (AUTO) 1.3 % (0.0-3.0); HEMATOCRIT 41.4 % (37.0-47.0); HEMOGLOBIN 14.5 G/DL (12.0-16.0); LYMPHOCYTES % (AUTO) 13.5 % (20.0-45.0); MEAN CORPUSCULAR VOLUME 82 FL (80-99); MONOCYTES % (AUTO) 3.6 % (1.0-10.0); NEUTROPHILS % (AUTO) 81.1 % (45.0-75.0); PLATELET COUNT 280 K/UL (150-450); RED BLOOD COUNT 5.03 M/UL (4.20-5.40); RED CELL DISTRIBUTION WIDTH 11.7 % (11.6-14.8); WHITE BLOOD COUNT 10.4 K/UL (4.8-10.8)
[2019-01-09 18:55] LABS: BILIRUBIN,DIRECT 0.2 MG/DL (0.0-0.3)
--- NOTE | 2019-01-09 18:59 | Emergency Room Report ---
History of Present Illness General Chief Complaint: Abdominal Pain Source: Patient Present Illness HPI 48-year-old female with no significant past medical history here complaining of 1 day of epigastric abdominal pain rating a 5 out of 10 without radiation, few bouts of nonbloody diarrhea, and feeling nauseated. Denies eating any new food , complains of acid reflux and burning sensation when burping. Denies fever and chills, URI symptoms, recent travel, urinary symptoms. Denies blood in stool. Complains of flatulence. Denies sick contacts. Patient sitting comfortably with stable vital signs. Denies chest pain, shortness of breath, palpitation, and other associated symptoms. Patient elicits guarding in epigastric region Allergies: Coded Allergies: No Known Allergies (Unverified , 05/31/12) Patient History Past Medical History: see triage record Past Surgical History: unable to obtain Pertinent Family History: none Now: No Immunizations: UTD Reviewed Nursing Documentation: PMH: Agreed; PSxH: Agreed Nursing Documentation-PMH Past Medical History: No Stated History Hx Hypertension: No Hx Diabetes: No Hx Gastrointestinal Problems: Yes - gastritis Review of Systems All Other Systems: negative except mentioned in HPI Physical Exam Vital Signs Date Time Temp Pulse Resp B/P (MAP) Pulse Ox O2 Delivery O2 Flow Rate FiO2 01/09/19 17:24 98.4 78 16 106/70 (82) 96 Room Air 01/09/19 17:30 97 Sp02 EP Interpretation: reviewed, normal General Appearance: no apparent distress, alert, GCS 15, non-toxic Head: normocephalic, atraumatic Eyes: bilateral eye normal inspection, bilateral eye PERRL ENT: hearing grossly normal, normal pharynx, no angioedema, normal voice Neck: full range of motion, supple, thyroid normal, supple/symm/no masses Respiratory: chest non-tender, lungs clear, normal breath sounds, no rhonchi, no respiratory distress, no wheezing, speaking full sentences Cardiovascular #1: regular rate, rhythm, no edema, no murmur, normal capillary refill Gastrointestinal: soft, no mass, no organomegaly, no peritonitis, no bruit, no guarding, no hernia, no pulsatile mass, guarding - epigastric Genitourinary: no CVA tenderness Musculoskeletal: back normal, decreased range of motion, normal range of motion , no calf tenderness Neurologic: alert, motor strength/tone normal, oriented x3, sensory intact, responsive, speech normal Psychiatric: normal inspection, judgement/insight normal, memory normal Skin: no rash Lymphatic: no adenopathy Medical Decision Making PA Attestation Diagnosis and treatment plans were reviewed and discussed with my supervising physician Dr. Cain Diagnostic Impression: Primary Impression: Gastroenteritis ER Course 48-year-old female with no significant past medical history here complaining of 1 day of epigastric abdominal pain rating a 5 out of 10 without radiation, few bouts of nonbloody diarrhea, and feeling nauseated. Denies eating any new food , complains of acid reflux and burning sensation when burping. Denies fever and chills, URI symptoms, recent travel, urinary symptoms. Denies blood in stool. Complains of flatulence. Denies sick contacts. Patient sitting comfortably with stable vital signs. Denies chest pain, shortness of breath, palpitation, and other associated symptoms. Patient elicits guarding in epigastric region Ddx considered but are not limited to: Gastroenteritis, gastritis, NE, cholecystitis Vital signs: are WNL, pt. is afebrile H&PE are most consistent with: Gastroenteritis ORDERS: CBC, CMP, UA, urine test, lipase, EKG, troponin, omeprazole, Zofran, Tylenol ED INTERVENTIONS: NS bolus, Pepcid, Toradol, Zofran DISCHARGE: At this time pt. is stable for d/c to home. Will provide printed patient care instructions, and any necessary prescriptions. Care plan and follow up instructions have been discussed with the patient prior to discharge. Patient to follow-up with her primary care physician, if worsening symptoms return to the emergency room, increase oral hydration and keep a BRAT diet EKG Diagnostic Results Rate: normal Rhythm: NSR ST Segments: no acute changes Other Impression no acute ST changes Last Vital Signs Date Time Temp Pulse Resp B/P (MAP) Pulse Ox O2 Delivery O2 Flow Rate FiO2 01/09/19 18:52 98.4 01/09/19 17:30 70 16 Room Air 97 01/09/19 17:30 122/86 98 Disposition: HOME, SELF-CARE Condition: Stable Scripts Acetaminophen* (TYLENOL EXTRA STRENGTH*) 500 Mg Tablet 500 MG ORAL Q6H PRN for Mild Pain/Temp > 100.5, #30 TAB 0 Refills Prov: Sahelimoghavami,Nahal PA 01/09/19 Omeprazole (OMEPRAZOLE) 20 Mg Tablet. 20 MG ORAL DAILY, #20 TAB Prov: Amy Gayle 01/09/19 Ondansetron (Zofran) 4 Mg Tablet 4 MG ORAL Q6H PRN for Nausea & Vomiting, #10 TAB Prov: Amy Gayle 01/09/19 Referrals: NON PHYSICIAN (PCP) Patient Instructions: Abdominal Pain, Adult Additional Instructions: Take medication as directed, follow-up with your primary care provider, if worsening symptoms return to the emergency room Amy Gayle Jan 09, 2019 18:59
[2019-01-09] MEDS ORDERED: ZOFRAN4 M1 ORAL (19:00)
[2019-01-09] MEDS ORDERED: TYLENOL EXTRA500 MG ORAL (19:00)
[2019-01-09] MEDS ORDERED: OMEPRAZOLE20 M3 ORAL (19:00)
--- NOTE | 2019-01-09 19:18 | NUR ---
ED Nurse Note: Patient cleared for discharge by ER provider. Patient has no s/s of acute distress, is A&Ox4, ambulatory with steady gait. ID band removed, IV removed. Patient departed with all belongings to her car.
[2019-01-09 19:23] VITALS: BP 122/86
[2019-01-09 22:45] LABS: ALBUMIN 3.8 G/DL (3.4-5.0)
--- NOTE | 2019-01-10 15:01 | Cardiology Report ---
APPROVED REPORT EKG Measurement Heart [id number] Normal sinus rhythm Nonspecific ST abnormality Abnormal ECG
== END 2019-01-09 19:18 | disposition home or self-care (01) ==
LOC: EMR 17:40
DX: K52.9 Noninfective gastroenteritis and colitis, unspecified (principal)
CPT/HCPCS: 36415; 80053; 81003; 81025; 82248; 83690; 84484; 85025; 93005; 96361; 96374; 96375; 99284; J1885; J2405; J7030

== ENCOUNTER 2019-04-25 08:27 | Emergency (ER) | payer OTHER ==
[~2019-04-25] VITALS: Ht 165.1 cm; Wt 81.6 kg
[~2019-04-25 08:27] MED LIST changes: +OMEPRAZOLE20 M3 ORAL; +TYLENOL EXTRA500 MG ORAL; +ZOFRAN4 M1 ORAL
[2019-04-25] MEDS ORDERED: Morphine Sulfate 4mg/ml Inj (IV USE ONLY) IVP ONE ×2 (08:30→09:15)
[2019-04-25] MEDS ORDERED: Morphine Sulfate 4mg/ml Inj (IV USE ONLY) ONE (08:30)
[2019-04-25] MEDS ORDERED: Ketorolac 30mg Inj ONE (08:30)
[2019-04-25] MEDS ORDERED: Ketorolac 30mg Inj IV ONE (08:30)
[2019-04-25 08:32] VITALS: BP 124/74
--- NOTE | 2019-04-25 08:32 | NUR ---
ED Nurse Note: Pt found in severe pain in parking lot by staff. Staff transported pt to ED via wheelchair. Pt c/o 10/10 left flank pain that radiates down into left thigh. Pt is restless and moaning in pain. A+Ox4, primarily sinhala speaking, but understands citizen [place]. Respirations even but labored d/t pain. Vitals stable as documented. Pt placed on monitored bed. IV inserted and blood drawn.
--- NOTE | 2019-04-25 08:44 | NUR ---
ED Nurse Note: pt in radiology
--- NOTE | 2019-04-25 08:49 | Emergency Room Report ---
History of Present Illness General Chief Complaint: Abdominal Pain Source: Patient Present Illness HPI 48-year-old female presents with sudden onset of right flank pain started at 4 AM no aggravating relieving factors severity is severe patient describes a squeezing sharp pain no fevers no chills no dysuria no nausea no vomiting patient presents for evaluation Allergies: Coded Allergies: No Known Allergies (Unverified , 05/31/12) Patient History Past Medical History: see triage record Last Menstrual Period: na Now: No Reviewed Nursing Documentation: PMH: Agreed; PSxH: Agreed Nursing Documentation-PMH Past Medical History: No History, Except For Hx Hypertension: No Hx Diabetes: No Hx Gastrointestinal Problems: Yes - gastritis Review of Systems All Other Systems: negative except mentioned in HPI Physical Exam Vital Signs Date Time Temp Pulse Resp B/P (MAP) Pulse Ox O2 Delivery O2 Flow Rate FiO2 04/25/19 08:27 98.1 92 18 124/74 (91) 98 Room Air Sp02 EP Interpretation: reviewed, normal General Appearance: alert, moderate distress Head: normocephalic, atraumatic Eyes: bilateral eye PERRL, bilateral eye EOMI ENT: uvula midline, moist mucus membranes Neck: supple, thyroid normal, supple/symm/no masses Respiratory: lungs clear, no respiratory distress, no retraction, no accessory muscle use Cardiovascular #1: normal peripheral pulses, regular rate, rhythm, no edema, no gallop, no murmur Gastrointestinal: non tender, soft, no guarding, no rebound Musculoskeletal: normal inspection Neurologic: alert, oriented x3 Psychiatric: mood/affect normal Skin: no rash, warm/dry Medical Decision Making Diagnostic Impression: Primary Impression: Right nephrolithiasis ER Course 48-year-old female presents with right flank pain differential diagnosis includes kidney stone nephrolithiasis, appendicitis Pain medication with pain control patient given fluid rehydration Patient found to have a distal ureteral stone will provide patient with outpatient medications cures report was ran Antibiotics were provided prophylactically Disposition home with return precautions follow-up with urology Laboratory Tests Test 04/25/19 08:30 04/25/19 09:45 White Blood Count 8.9 K/UL (4.8-10.8) Red Blood Count 5.32 M/UL (4.20-5.40) Hemoglobin 15.1 G/DL (12.0-16.0) Hematocrit 44.0 % (37.0-47.0) Mean Corpuscular Volume 83 FL (80-99) Mean Corpuscular Hemoglobin 28.4 PG (27.0-31.0) Mean Corpuscular Hemoglobin Concent 34.4 G/DL (32.0-36.0) Red Cell Distribution Width 11.7 % (11.6-14.8) Platelet Count 330 K/UL (150-450) Mean Platelet Volume 6.1 FL (6.5-10.1) L Neutrophils (%) (Auto) 55.9 % (45.0-75.0) Lymphocytes (%) (Auto) 35.0 % (20.0-45.0) Monocytes (%) (Auto) 6.0 % (1.0-10.0) Eosinophils (%) (Auto) 1.8 % (0.0-3.0) Basophils (%) (Auto) 1.4 % (0.0-2.0) Prothrombin Time 10.1 SEC (9.30-11.50) Prothrombin Time INR 0.9 (0.9-1.1) Activated Partial Thromboplast Time 27 SEC (23-33) Sodium Level 143 MMOL/L (136-145) Potassium Level 3.8 MMOL/L (3.5-5.1) Chloride Level 107 MMOL/L (98-107) Carbon Dioxide Level 23 MMOL/L (21-32) Anion Gap 13 mmol/L (5-15) Blood Urea Nitrogen 14 mg/dL (7-18) Creatinine 0.8 MG/DL (0.55-1.30) Estimate Glomerular Filtration Rate > 60 mL/min (>60) Glucose Level 120 MG/DL (74-106) H Calcium Level 9.6 MG/DL (8.5-10.1) Total Bilirubin 0.8 MG/DL (0.2-1.0) Aspartate Amino Transferase (AST) 22 U/L (15-37) Alanine Aminotransferase (ALT) 25 U/L (12-78) Alkaline Phosphatase 77 U/L (46-116) Total Protein 7.9 G/DL (6.4-8.2) Albumin 3.8 G/DL (3.4-5.0) Globulin 4.1 g/dL Albumin/Globulin Ratio 0.9 (1.0-2.7) L Lipase 232 U/L (73-393) Urine Color Yellow Urine Appearance Clear Urine pH 5 (4.5-8.0) Urine Specific [place] 1.025 (1.005-1.035) Urine Protein 1+ (NEGATIVE) H Urine Glucose (UA) Negative (NEGATIVE) Urine Ketones Negative (NEGATIVE) Urine Blood 4+ (NEGATIVE) H Urine Nitrite Negative (NEGATIVE) Urine Bilirubin Negative (NEGATIVE) Urine Urobilinogen Normal MG/DL (0.0-1.0) Urine Leukocyte Esterase 1+ (NEGATIVE) H Urine RBC 20-30 /HPF (0 - 2) H Urine WBC 0-2 /HPF (0 - 2) Urine Squamous Epithelial Cells Few /LPF (NONE/OCC) Urine Bacteria Few /HPF (NONE) Urine Mucus Few /LPF (NONE/OCC) H EKG Diagnostic Results EKG Time: 08:01 EP Interpretation: NSR, rate 66, QTc 41, no acute ST elevations, normal axis Rhythm Strip Diag. Results Rhythm Strip Time: 09:10 EP Interpretation: yes Rate: 63 Rhythm: NSR, no PVC's, no ectopy CT/MRI/US Diagnostic Results CT/MRI/US Diagnostic Results : Impression Procedure: CT Abdomen Pelvis WO Contrast Indication: Sudden onset of right flank pain starting at 4:00 AM Technique: Spiral acquisitions obtained through the abdomen and pelvis. No oral or IV contrast, per urinary stone protocol. Multiplanar reconstructions were generated. Total dose length product 497 mGycm. CTDIvol(s) no mGy. Dose reduction achieved using automated exposure control Comparison: 06/15/2018 Findings: There is a 2 mm calculus projected at the right ureteral orifice. This results in moderate right hydronephrosis and moderate right hydroureter. No intrarenal calculi demonstrated. No left renal or ureteral calculi, left hydronephrosis or hydroureter is evident. Lack of IV contrast limits assessment of the renal parenchyma. Right lower pole cyst described on prior exams is barely if at all visible on the current study.. No significant perinephric inflammation. Lack of IV contrast limits assessment of the other solid organs. The liver demonstrates a subtle 2.5 cm low-attenuation area in segment 2, also described previously and evident on multiple prior studies dating back to 2008. Gallbladder, bile ducts, pancreas, spleen, adrenals are all grossly unremarkable. No retroperitoneal or mesenteric mass or adenopathy. No pelvic mass or adenopathy. There is a small accessory splenule incidentally noted. No evidence of diverticulosis or diverticulitis. The appendix is normal. No small bowel distention. No free or loculated intraperitoneal gas or fluid is evident. The distal esophagus, stomach, duodenum are unremarkable. The included lung bases demonstrate minimal posterior dependent atelectatic changes. The bones are unremarkable. Impression: Positive for 2 mm distal right ureteral calculus. Resultant moderate hydronephrosis and hydroureter 2.5 cm left lobe liver lesion, unchanged from multiple prior exams dating back to 2008 and presumably benign. Tiny right renal cyst, barely visible currently, described previously. Other incidental findings as noted The CT scanner at [facility] is accredited by the [employer] and the scans are performed using protocols designed to limit radiation exposure to as low as reasonably achievable to attain images of sufficient resolution adequate for diagnostic evaluation. Dictated By: Prem Drake MD Electronically Signed By: Prem Drake MD Signed Date/Time 04/25/19 0952 CC: Chico Cain MD Last Vital Signs Date Time Temp Pulse Resp B/P (MAP) Pulse Ox O2 Delivery O2 Flow Rate FiO2 04/25/19 08:32 90 18 Room Air 04/25/19 08:32 98.1 124/74 98 Disposition: HOME, SELF-CARE Condition: Stable Scripts Tamsulosin HCl (Flomax) 0.4 Mg Cap.er.24h 0.4 MG ORAL DAILY, #30 CAP Prov: Chico Cain MD 04/25/19 Hydrocodone Bit/Acetaminophen 5-325* (NORCO 5-325 TABLET*) 1 Each Tablet 1 TAB ORAL Q6H PRN for FOR PAIN, #12 TAB 0 Refills Prov: Chico Cain MD 04/25/19 Cephalexin* (KEFLEX*) 500 Mg Tablet 500 MG ORAL EVERY 6 HOURS, #28 CAP Prov: Chico Cain MD 04/25/19 Ibuprofen* (MOTRIN*) 600 Mg Tablet 600 MG ORAL Q8H PRN for For Pain, #30 TAB 0 Refills Prov: Chico Cain MD 04/25/19 Referrals: [facility] Patient Instructions: Kidney Stones, [id number] Additional Instructions: The patient was provided with discharge instructions, notified to follow-up with a primary care doctor and or specialist in the next 24-48 hours, and to return to the ED if they have worsening of their symptoms. Please note that this report is being documented using Result[employer] technology. This can lead to erroneous entry secondary to incorrect interpretation by the dictating instrument. FOLLOW-UP WITH UROLOGY Chico Dai MD Apr 25, 2019 08:49
[2019-04-25 08:56] LABS: INR 0.9 (0.9-1.1)
[2019-04-25 08:57] LABS: ANION GAP 13 mmol/L (5-15); BLOOD UREA NITROGEN 14 mg/dL (7-18); CALCIUM 9.6 MG/DL (8.5-10.1); CARBON DIOXIDE 23 MMOL/L (21-32); CHLORIDE 107 MMOL/L (98-107); CREATININE 0.8 MG/DL (0.55-1.30); POTASSIUM 3.8 MMOL/L (3.5-5.1); SODIUM 143 MMOL/L (136-145)
--- NOTE | 2019-04-25 09:00 | NUR ---
ED Nurse Note: pt back from radiolgy and aware of the need for urine sample
[2019-04-25 09:03] LABS: ALANINE AMINOTRANSFERASE 25 U/L (12-78); ALBUMIN 3.8 G/DL (3.4-5.0); ALBUMIN/GLOBULIN RATIO 0.9 (1.0-2.7); ALKALINE PHOSPHATASE 77 U/L (46-116); ASPARTATE AMINO TRANSFERASE 22 U/L (15-37); BILIRUBIN,TOTAL 0.8 MG/DL (0.2-1.0)
[2019-04-25 09:05] LABS: BASOPHILS % (AUTO) 1.4 % (0.0-2.0); EOSINOPHILS % (AUTO) 1.8 % (0.0-3.0); HEMOGLOBIN 15.1 G/DL (12.0-16.0); MEAN CORPUSCULAR VOLUME 83 FL (80-99); NEUTROPHILS % (AUTO) 55.9 % (45.0-75.0); PLATELET COUNT 330 K/UL (150-450); RED BLOOD COUNT 5.32 M/UL (4.20-5.40); RED CELL DISTRIBUTION WIDTH 11.7 % (11.6-14.8); WHITE BLOOD COUNT 8.9 K/UL (4.8-10.8)
[2019-04-25] MEDS ORDERED: DiphenhydrAMINE 50mg/ml Inj IVP ONE (09:15)
[2019-04-25 09:54] LABS: APPEARANCE,URINE CLEAR; BILIRUBIN, URINE NEGATIVE (NEGATIVE); GLUCOSE, URINE (UA) NEGATIVE (NEGATIVE); KETONES,URINE NEGATIVE (NEGATIVE); LEUKOCYTE ESTERASE ,URINE 1+ (NEGATIVE); NITRITE,URINE NEGATIVE (NEGATIVE); PH,URINE 5 (4.5-8.0); PROTEIN,URINE 1+ (NEGATIVE); UROBILINOGEN,URINE NORMAL MG/DL (0.0-1.0)
--- NOTE | 2019-04-25 09:57 | Diagnostic Imaging Report ---
Indication: Sudden onset of right flank pain starting at 4:00 AM Technique: Spiral acquisitions obtained through the abdomen and pelvis. No oral or IV contrast, per urinary stone protocol. Multiplanar reconstructions were generated. Total dose length product 497 mGycm. CTDIvol(s) no mGy. Dose reduction achieved using automated exposure control Comparison: 06/15/2018 Findings: There is a 2 mm calculus projected at the right ureteral orifice. This results in moderate right hydronephrosis and moderate right hydroureter. No intrarenal calculi demonstrated. No left renal or ureteral calculi, left hydronephrosis or hydroureter is evident. Lack of IV contrast limits assessment of the renal parenchyma. Right lower pole cyst described on prior exams is barely if at all visible on the current study.. No significant perinephric inflammation. Lack of IV contrast limits assessment of the other solid organs. The liver demonstrates a subtle 2.5 cm low-attenuation area in segment 2, also described previously and evident on multiple prior studies dating back to 2008. Gallbladder, bile ducts, pancreas, spleen, adrenals are all grossly unremarkable. No retroperitoneal or mesenteric mass or adenopathy. No pelvic mass or adenopathy. There is a small accessory splenule incidentally noted. No evidence of diverticulosis or diverticulitis. The appendix is normal. No small bowel distention. No free or loculated intraperitoneal gas or fluid is evident. The distal esophagus, stomach, duodenum are unremarkable. The included lung bases demonstrate minimal posterior dependent atelectatic changes. The bones are unremarkable. Impression: Positive for 2 mm distal right ureteral calculus. Resultant moderate hydronephrosis and hydroureter 2.5 cm left lobe liver lesion, unchanged from multiple prior exams dating back to 2008 and presumably benign. Tiny right renal cyst, barely visible currently, described previously. Other incidental findings as noted The CT scanner at [facility] is accredited by the [employer] and the scans are performed using protocols designed to limit radiation exposure to as low as reasonably achievable to attain images of sufficient resolution adequate for diagnostic evaluation.
[2019-04-25 10:09] LABS: COLOR,URINE YELLOW
[2019-04-25] MEDS ORDERED: cefTRIAXone 1 GM in NS 55 ML IVPB ONE (10:15)
[2019-04-25] MEDS ORDERED: FLOMAX0.4 MG ORAL (10:40)
[2019-04-25] MEDS ORDERED: IBUPROFEN600 MG ORAL (10:40)
[2019-04-25] MEDS ORDERED: CEPHALEXIN500 M1 ORAL (10:40)
[2019-04-25] MEDS ORDERED: NORCO 5-325 TA1 EAC1 ORAL (10:40)
--- NOTE | 2019-04-25 11:04 | NUR ---
ED Nurse Note: Pt signed discharge paperwork. Pt feeling dizzy and unsafe to walk. Pt to stay in bed until she feels more safe to walk. ED MD aware.
[2019-04-25 12:10] VITALS: BP 131/78
--- NOTE | 2019-04-25 12:10 | NUR ---
ER DISCHARGE NOTE: Patient is cleared to be discharged per ERMD, pt is aox4, on room air, with stable vital signs. pt was given dc and prescription instructions, pt was able to verbalize understanding, pt id band and iv site removed without complications. pt is able to ambulate with steady gait. pt took all belongings.
== END 2019-04-25 12:10 | disposition home or self-care (01) ==
LOC: EMR 09:05
DX: N20.0 Calculus of kidney (principal); N28.1 Cyst of kidney, acquired; N13.2 Hydronephrosis with renal and ureteral calculous obstruction
CPT/HCPCS: 36415; 74176; 80053; 81003; 83690; 85025; 85610; 85730; 93005; 96361; 96365; 96375; 96376; J0696; J1200; J1885; J2270; J2405; J7030; Z7502; 99284